=== PATIENT | male | born 1990 | race Two or more races ===

== ENCOUNTER 2016-07-26 23:22 | Emergency (ER) | payer OTHER ==
[~2016-07-26] VITALS: Ht 182.9 cm; Wt 90.7 kg
[2016-07-27] MEDS ORDERED: PERCOCET 5MG/325MG TAB PO ONE (00:15)
[2016-07-27] MEDS ORDERED: IBUPROFEN 800 MG TAB PO ONE (00:30)
[2016-07-27] MEDS ORDERED: IBUP600T26 PO (00:41)
[2016-07-27 00:49] VITALS: BP 136/54
--- NOTE | 2016-07-27 09:37 | REP ---
LEFT FOOT COMPLETE: 07/27/2016. Clinical history: Blunt trauma, pain right great toe. No prior studies. Findings: The four views demonstrate a fracture of the shaft and metaphysis of the distal phalanx of the great toe without significant displacement. It appears to have a articular extension seen best on the lateral view with a 1 mm step off suggested. No other findings. Impression:1. Fracture of the distal phalanx great toe without significant displacement, only a 1 mm step-off at the one intra-articular extension noted laterally. Signed by Moreno Ham MD 07/27/2016 10:53 A
== END 2016-07-27 00:53 | disposition home or self-care (01) ==
LOC: M ED 23:29
DX: S92.405A Nondisplaced unspecified fracture of left great toe, initial encounter for closed fracture (principal); S90.32XA Contusion of left foot, initial encounter; W20.8XXA Other cause of strike by thrown, projected or falling object, initial encounter; Y92.89 Other specified places as the place of occurrence of the external cause; Y93.89 Activity, other specified; Y99.8 Other external cause status